=== PATIENT | female | born 1945 | race Caucasian/White ===

== ENCOUNTER → 2019-11-08 | Outpatient (CLI) | payer OTHER ==
[~2019-11-08] MED LIST: ALPR0.5T PO; ASPI-1012 PO; CALC-724 PO; DILT120T PO; LORA10CA9 PO; LOSA50TA64 PO; MULT1CAP32 PO; OMEP20CA12 PO; SIMV40TA59 PO; TRAZ-187 PO
== END | disposition home or self-care (01) ==
LOC: RAH 11:11
PROVIDERS: ATTEND Internal Medicine
DX: Z12.31 Encounter for screening mammogram for malignant neoplasm of breast (principal)
CPT/HCPCS: 77067

== ENCOUNTER → 2021-12-19 | Outpatient (CLI) | payer OTHER ==
[~2021-12-19] MED LIST changes: +CALC-1158 PO; -CALC-724 PO
== END | disposition home or self-care (01) ==
LOC: RAH 09:56
PROVIDERS: ATTEND Physician Assistant Medical
DX: Z12.31 Encounter for screening mammogram for malignant neoplasm of breast (principal)
CPT/HCPCS: 77067

== ENCOUNTER → 2022-06-07 | Outpatient (CLI) | payer OTHER | END | disposition home or self-care (01) | LOC: RAH 14:27 | PROVIDERS: ATTEND Physician Assistant Medical | DX: M48.061 Spinal stenosis, lumbar region without neurogenic claudication (principal); M47.816 Spondylosis without myelopathy or radiculopathy, lumbar region; M51.36 Other intervertebral disc degeneration, lumbar region; G83.14 Monoplegia of lower limb affecting left nondominant side | CPT/HCPCS: 72148 ==

== ENCOUNTER 2022-11-12 14:00 | Observation (INO) | payer OTHER ==
[~2022-11-12] VITALS: Ht 160 cm; Wt 67.0 kg
[2022-11-12 10:26] LABS: BASOPHILS # (AUTO) 0.05 K/uL (0.00-0.20); BASOPHILS % (AUTO) 0.5 % (0.0-5.0); EOSINOPHILS # (AUTO) 0.09 K/uL (0.00-0.70); EOSINOPHILS % (AUTO) 0.9 % (0.0-8.0); HEMATOCRIT 37.2 % (36-48); IMMATURE GRANULOCYTE ABSOLUTE 0.03 K/uL (0-1); LYMPHOCYTES # (AUTO) 2.1 K/uL (1.0-4.8); LYMPHOCYTES % (AUTO) 21.1 % (21.0-51.0); MEAN CORPUSCULAR HEMOGLOBIN 25.4 pg (27.0-33.0); MEAN CORPUSCULAR HGB CONC 30.9 g/dL (32.0-36.0); MEAN CORPUSCULAR VOLUME 82.3 fL (79-99); MONOCYTES # (AUTO) 0.6 K/uL (0.1-1.0); MONOCYTES % (AUTO) 5.6 % (3.0-13.0); NEUTROPHILS # (AUTO) 7.1 K/uL (1.8-7.7); NEUTROPHILS % (AUTO) 71.6 % (40.0-77.0); PLATELET COUNT (AUTO) 345 K/uL (130-400); RED BLOOD CELL COUNT(AUTO) 4.52 MIL/uL (4.00-5.50); RED CELL DISTRIBUTION WIDTH 14.7 % (11.0-15.5); WHITE BLOOD COUNT (AUTO) 9.9 K/uL (4.8-10.8)
[2022-11-12 10:34] LABS: CREATININE 0.8 mg/dL (0.5-1.5); POTASSIUM 4.6 mmol/L (3.5-5.1)
[2022-11-12 13:45] VITALS: BP 137/51; PULSE 66; RESP 12
[~2022-11-12 14:00] MED LIST changes: -ASPI-1012 PO
[2022-11-12] MEDS ORDERED: DOCU-280 PO (15:55)
[2022-11-13] VITALS (30 sets, daily range): BP systolic 92–139; BP diastolic 44–77; PULSE 54–88; RESP 10–21; O2SAT 93–98
[2022-11-13] MEDS ORDERED: LACTATED RINGERS 1000ML 1,000 ML IV ONE (06:26)
[2022-11-13] MEDS ORDERED: CEFAZOLIN SODIUM 2 GM VIAL ONE (06:26)
[2022-11-13] MEDS ORDERED: CEFAZOLIN SODIUM 1 GM VIAL ONE (06:53)
[2022-11-13] MEDS ORDERED: MORPHINE PF 100MG/10ML AMP IV ONE (06:54)
[2022-11-13] MEDS ORDERED: THROMBIN-JMI 20000 UNIT KIT TP ONE (06:54)
[2022-11-13] MEDS ORDERED: BUPIVACAINE/EPI/PF 0.25% 30ML VIAL IJ ONE (07:00)
[2022-11-13] MEDS ORDERED: LIDOCAINE PF 100MG/5ML (2%) SYRINGE 5ML ONE (07:15)
[2022-11-13] MEDS ORDERED: ROCURONIUM 10MG/1ML SYR 10 MG/ML ML ONE (07:15)
[2022-11-13] MEDS ORDERED: PROPOFOL 10 MG/ML 20ML VIAL IV ONE (07:15)
[2022-11-13] MEDS ORDERED: MIDAZOLAM HCL 1 MG/ML 2ML VIAL ONE (07:18)
[2022-11-13] MEDS ORDERED: FENTANYL CITRATE PF 50 MCG/1 ML 2ML VIAL ONE ×3 (07:19→11:15)
[2022-11-13] MEDS ORDERED: PROPOFOL 1000 MG/100 ML 100 ML IV ONE (07:20)
[2022-11-13] MEDS ORDERED: ONDANSETRON 4MG INJ ONE (07:20)
[2022-11-13] MEDS ORDERED: NICO-704 TD (07:37)
[2022-11-13] MEDS ORDERED: DEXAMETHASONE SOD PHOSPHATE 10MG/ML 1ML VIAL ONE (07:49)
[2022-11-13] MEDS ORDERED: GLYCOPYRROLATE 1 MG/5 ML SYRINGE ONE (08:15)
[2022-11-13] MEDS ORDERED: EPHEDRINE SULFATE 50 MG/ML AMPULE ONE (08:34)
[2022-11-13] MEDS ORDERED: ALPRAZOLAM 0.5 MG TABLET PO PRN (11:30)
[2022-11-13] MEDS ORDERED: MORPHINE 2 MG SYG IVP PRN (11:30)
[2022-11-13] MEDS ORDERED: PROMETHAZINE HCL 25 MG/ML 1ML AMPULE IM PRN (11:30)
[2022-11-13] MEDS ORDERED: 0.9%NACL 10ML VIAL IVP PRN (11:30)
[2022-11-13] MEDS: DEXAMETHASONE SOD PHOSPHATE 4 MG/ML 1ML VIAL IVP SCH ×3 (15:27→23:33)
[2022-11-13] MEDS: LACTATED RINGERS 1000ML 1,000 ML IV SCH (15:27)
[2022-11-13] MEDS: CEFAZOLIN SODIUM 2 GM VIAL IVPB SCH ×3 (17:17→19:30)
[2022-11-13] MEDS ORDERED: TRAZODONE HCL 100 MG TABLET PO SCH (21:00)
[2022-11-13] MEDS ORDERED: DOCUSATE SODIUM 100 MG CAP PO SCH (21:00)
[2022-11-13] MEDS ORDERED: ATORVASTATIN 10 MG TABLET PO SCH (21:00)
[2022-11-13] MEDS ORDERED: NON-FORMULARY MEDICATION 1 EACH (Simvastatin (Zocor) 20 MG) PO SCH (21:00)
[2022-11-14] MEDS: LACTATED RINGERS 1000ML 1,000 ML IV SCH ×2 (00:50→14:10)
[2022-11-14 01:06] VITALS: PULSE 56; RESP 18; O2SAT 95
[2022-11-14 03:35] VITALS: BP 110/51; PULSE 55; RESP 19
[2022-11-14] MEDS: DEXAMETHASONE SOD PHOSPHATE 4 MG/ML 1ML VIAL IVP SCH ×3 (05:17→16:59)
[2022-11-14] MEDS: HYDROCODONE/ACETAMINOPHEN 5/325 MG TAB PO PRN ×2 (06:18→10:38)
[2022-11-14 06:38] VITALS: PULSE 71; RESP 18; O2SAT 95
[2022-11-14 08:00] VITALS: BP 119/44; PULSE 72; RESP 16; O2SAT 92
[2022-11-14 08:45] LABS: HEMATOCRIT 34.9 % (36-48); MEAN CORPUSCULAR HEMOGLOBIN 25.5 pg (27.0-33.0); MEAN CORPUSCULAR HGB CONC 30.4 g/dL (32.0-36.0); MEAN CORPUSCULAR VOLUME 84.1 fL (79-99); RED BLOOD CELL COUNT(AUTO) 4.15 MIL/uL (4.00-5.50); RED CELL DISTRIBUTION WIDTH 14.6 % (11.0-15.5); WHITE BLOOD COUNT (AUTO) 23.9 K/uL (4.8-10.8)
[2022-11-14] MEDS ORDERED: MULTIVITAMIN TABLET PO SCH (09:00)
[2022-11-14] MEDS ORDERED: NON-FORMULARY MEDICATION 1 EACH (Multivitamin (Multivitamins) 1 EACH) PO SCH (09:00)
[2022-11-14] MEDS ORDERED: DILTIAZEM 120MG SR CAP PO SCH (09:00)
[2022-11-14] MEDS ORDERED: NICOTINE 14 MG/ 24 HR PATCH TD SCH (09:00)
[2022-11-14] MEDS ORDERED: NON-FORMULARY MEDICATION 1 EACH (Omeprazole 20 MG) PO SCH (09:00)
[2022-11-14] MEDS ORDERED: NON-FORMULARY MEDICATION 1 EACH (Diltiazem HCl 120 MG) PO SCH (09:00)
[2022-11-14] MEDS ORDERED: DILTIAZEM 60MG TAB PO SCH (09:00)
[2022-11-14] MEDS ORDERED: LOSARTAN 50 MG TABLET PO SCH (09:00)
[2022-11-14] MEDS ORDERED: CA 600MG+VIT D 400 UNIT TAB 1 TAB TABLET PO SCH (09:00)
[2022-11-14] MEDS ORDERED: NON-FORMULARY MEDICATION 1 EACH (Loratadine 10 MG) PO SCH (09:00)
[2022-11-14] MEDS ORDERED: LORATADINE 10 MG TABLET PO SCH (09:00)
[2022-11-14] MEDS ORDERED: PANTOPRAZOLE 40 MG TAB DR PO SCH (09:00)
[2022-11-14 11:53] VITALS: BP 107/52; PULSE 63; RESP 16
[2022-11-14 16:00] VITALS: BP 110/53; PULSE 57; RESP 16
== END 2022-11-14 18:00 | disposition home or self-care (01) ==
LOC: DAHIP 11-13 05:45 → 4AH 11-13 13:40 → EDSTATUS 11-13 14:00
PROVIDERS: ADMIT Neurological Surgery; ATTEND Neurological Surgery
DX: M48.061 Spinal stenosis, lumbar region without neurogenic claudication (principal); I10 Essential (primary) hypertension; E78.5 Hyperlipidemia, unspecified; Z96.649 Presence of unspecified artificial hip joint; Z79.899 Other long term (current) drug therapy; Z98.890 Other specified postprocedural states
CPT/HCPCS: 80048; 85025; 36415 ×2; 71045; 96376 ×2; 96365; 96375; 63047; 63048 ×3; 96372; 72020; 94760; 85027; A6260; J1100 ×7; G0378 ×28; G0379; A4510; A4221; A4600; A4663; J7120 ×2; A4344; J3010 ×3; J0690 ×4; J3490 ×3; J2550; J2001; J2250; J2704 ×2; J2274; J2405; A4649; A4215; A4223; A4222; A4606

== ENCOUNTER → 2022-12-24 | Outpatient (CLI) | payer OTHER ==
[~2022-12-24] MED LIST changes: +DOCU-280 PO; +NICO-704 TD
== END | disposition home or self-care (01) ==
LOC: RAH 09:04
PROVIDERS: ATTEND Physician Assistant Medical
DX: Z12.31 Encounter for screening mammogram for malignant neoplasm of breast (principal)
CPT/HCPCS: 77067

== ENCOUNTER → 2023-12-26 | Outpatient (CLI) | payer OTHER | END | disposition home or self-care (01) | LOC: RAH 10:43 | PROVIDERS: ATTEND Physician Assistant Medical | DX: Z12.31 Encounter for screening mammogram for malignant neoplasm of breast (principal); R92.30 Dense breasts, unspecified | CPT/HCPCS: 77067 ==